=== PATIENT | female | born 1960 | race Caucasian/White ===

== ENCOUNTER → 2017-03-14 | Outpatient (CLI) | payer OTHER ==
[~2017-03-14] MED LIST: ADVAIR HFA 230M12 GM INH; ASPIR-TRIN325 MG PO; FLEXERIL PO; METFORMIN HCL500 MG PO; MOBIC7.5 MG PO; NORCO 5-325 TA1 EACH PO; OXYCODONE HCL 55 MG PO; PROAIR HFA8.5 GM INH; PROZAC 20 MG20 MG PO; XARELTO10 MG PO
[2017-03-14 11:29] LABS: HEMATOCRIT 40.4 % (37.0-47.0); HEMOGLOBIN 12.8 gm/dL (12.0-15.0); MCH 25.7 pg (26.0-34.0); MCHC 31.7 g/dL (28.0-37.0); RBC 4.98 mil/uL (4.20-5.00); RDW-CV 14.8 % (10.5-14.5)
[2017-03-14 11:41] LABS: CALCIUM 10.2 mg/dL (8.5-10.1); CREATININE 0.7 mg/dL (0.6-1.3); POTASSIUM 4.1 mmol/L (3.5-5.1); TOTAL BILIRUBIN 0.2 mg/dL (<0.1-1.0); TOTAL PROTEIN 7.8 g/dL (6.4-8.2)
[2017-03-15 03:08] LABS: GLYCOHEMOGLOBIN (HGB A1C) 6.3 % (4.8-5.6)
== END ==
LOC: M.MRI 10:54 → M.LAB 10:54 → M.MRI 11:30
PROVIDERS: Orthopaedic Surgery
DX: S83.242A Other tear of medial meniscus, current injury, left knee, initial encounter (principal); M17.12 Unilateral primary osteoarthritis, left knee; M25.462 Effusion, left knee; Z96.653 Presence of artificial knee joint, bilateral; X58.XXXA Exposure to other specified factors, initial encounter; Y93.89 Activity, other specified; Y92.89 Other specified places as the place of occurrence of the external cause; Y99.8 Other external cause status

== ENCOUNTER → 2017-03-21 | Outpatient (CLI) | payer OTHER | LOC: M.LAB 12:39 | DX: Z01.812 Encounter for preprocedural laboratory examination (principal) ==